=== PATIENT | male | born 1985 | race African-American/Black ===

== ENCOUNTER 2021-03-10 17:30 | Emergency (ER) | payer OTHER ==
[~2021-03-10] VITALS: Ht 167.6 cm; Wt 56.8 kg
[2021-03-10 17:54] VITALS: BP 126/71
[2021-03-12 08:07] LABS: HIV 1-2 SCREEN 4TH GEN W/RFLX Reactive (Non Reactive); HIV INTERPRETATION HIV-1 Positive; HIV-1 ANTIBODY(MULTISPOT) Positive (Negative); HIV-2 ANTIBODY(MULTISPOT) Negative (Negative)
== END 2021-03-10 18:09 | disposition home or self-care (01) ==
LOC: EMS 17:32
DX: Z02.89 Encounter for other administrative examinations (principal)
CPT/HCPCS: 86701; 86702; 87389; 99283